=== PATIENT | female | born 1965 | race Caucasian/White ===

== ENCOUNTER → 2022-08-07 09:41 | Outpatient (BNVA) | payer OTHER, SELFPAY | PROVIDERS: PCP Internal Medicine; Visit Provider Internal Medicine Rheumatology | DX: L40.9 Psoriasis, unspecified (principal); L40.50 Arthropathic psoriasis, unspecified; K50.90 Crohn's disease, unspecified, without complications; M19.049 Primary osteoarthritis, unspecified hand | CPT/HCPCS: 99212 ==